=== PATIENT | female | born 1990 | race Caucasian/White ===

== ENCOUNTER 2017-04-12 08:29 | Emergency (ER) | payer BC ==
[~2017-04-12] VITALS: Ht 152.4 cm; Wt 63.7 kg
[~2017-04-12 08:29] MED LIST: KEFLEX500 MG PO; ORTHO TRI-CY1 TABLE1 PO
[2017-04-12] MEDS ORDERED: AMOXICILLIN875 MG PO (10:27)
[2017-04-12 11:05] VITALS: BP 120/72
== END 2017-04-12 11:06 | disposition home or self-care (01) ==
LOC: EME 08:29
DX: J02.9 Acute pharyngitis, unspecified (principal); R50.9 Fever, unspecified; I10 Essential (primary) hypertension; Z85.05 Personal history of malignant neoplasm of liver; Z88.5 Allergy status to narcotic agent; Z88.2 Allergy status to sulfonamides
CPT/HCPCS: 99281; 99284; J8540